=== PATIENT | male | born 1965 | race Caucasian/White ===

== ENCOUNTER 2017-04-27 19:24 | Emergency (ER) | payer OTHER ==
[2017-04-27 20:44] VITALS: BP 145/81
--- NOTE | 2017-05-04 14:33 | UC ---
Complaint Male HPI - HPI Summary HPI Summary: Patient presents with general fatigue, malaise, abdominal pain, dysuria. His symptoms came on rather suddenly and progressed through the course of today. - History of Current Complaint Hx Obtained From: Patient Onset/Duration: Sudden Onset, Lasting Hours Timing: Constant Severity Initially: Mild Severity Currently: Moderate Pain Intensity: 5 Pain Scale Used: Adult Non Verbal Location: Suprapubic Aggravating Factor(s): Voiding Associated Signs And Symptoms: Positive: Negative - Risk Factors Testicular Torsion: Negative <La León - Last Filed: 05/04/17 20:23> <Mary Cervantes - Last Filed: 05/05/17 08:53> - History of Current Complaint Chief Complaint: UCGU Stated Complaint: UTI Time Seen by Provider: 04/27/17 20:26 - Allergies/Home Medications Allergies/Adverse Reactions: Allergies Allergy/AdvReac Type Severity Reaction Status Date / Time Tetanus Toxoids Allergy Intermediate Swelling Verified 04/27/17 21:06 Penicillins Allergy Unknown Unknown Verified 04/27/17 21:06 Reaction Details Vancomycin AdvReac Unknown Tinnitus Verified 04/27/17 21:06 horse serum Allergy Intermediate Swelling Uncoded 04/27/17 21:06 PMH/Surg Hx/FS Hx/Imm Hx Previously Healthy: Yes - Surgical History Surgical History: None - Family History Known Family History: Positive: None - Social History Occupation: Employed Full-time Lives: Alone Alcohol Use: Occasionally Substance Use Type: None Smoking Status (MU): Never Smoked Tobacco - Immunization History Most Recent Influenza Vaccination: 2012 Most Recent Tetanus Shot: tetnus allergy Most Recent Pneumonia Vaccination: never <[place] Le[place] - Last Filed: 05/04/17 20:23> Review of Systems Constitutional: Fever, Fatigue Eyes: Negative ENT: Negative Respiratory: Negative Cardiovascular: Negative Gastrointestinal: Abdominal Pain Genitourinary: Dysuria Motor: Negative Neurovascular: Negative Musculoskeletal: Negative All Other Systems Reviewed And Are Negative: Yes <[place] - Last Filed: 05/04/17 20:23> Physical Exam Triage Information Reviewed: Yes Appearance: Ill-Appearing Vital Signs: Initial Vital Signs Temp 101.9 F 04/27/17 19:43 Pulse 99 04/27/17 19:43 Resp 18 04/27/17 19:43 BP 195/85 04/27/17 19:43 Pulse Ox 99 04/27/17 19:43 Vital Signs Reviewed: Yes Eye Exam: Normal ENT Exam: Normal Neck exam: Normal Neck: Positive: 1 Respiratory: Positive: Lungs clear, Normal breath sounds, No respiratory distress Cardiovascular Exam: Normal Abdomen Description: Positive: Guarding Musculoskeletal Exam: Normal Skin Exam: Normal <[place] León - Last Filed: 05/04/17 20:23> Vital Signs: Initial Vital Signs Temp 101.9 F 04/27/17 19:43 Pulse 99 04/27/17 19:43 Resp 18 04/27/17 19:43 BP 195/85 04/27/17 19:43 Pulse Ox 99 04/27/17 19:43 <Mary Cervantes - Last Filed: 05/05/17 08:53> Complaint Male Course/Dx - Course Course Of Treatment: Patient was referred to the ER for emergent evaluation of abdominal pain. UA was positive for infection. Patient was treated with ABX and told to go to ER if his symtpoms worsened. He verbalized understanding. - Differential Dx/Diagnosis Differential Diagnosis/HQI/PQRI: Urinary Tract Infection Provider Diagnoses: uti <[place] León - Last Filed: 05/04/17 20:23> Discharge <[place] - Last Filed: 05/04/17 20:23> <Mary Cervantes - Last Filed: 05/05/17 08:53> - Discharge Plan Condition: Stable Disposition: HOME Patient Education Materials: Urinary Tract Infection in Men (ED) Referrals: Bassam Zamora MD [Primary Care Provider] - Additional Instructions: Patient was transferred to the ER. Attestation Statement Provider Attestation: I did not encounter this patient directly and did not participate in his care. I was available for consultation in the premises. <Mary Cervantes - Last Filed: 05/05/17 08:53>
== END 2017-04-27 20:45 | disposition short-term general hospital (02) ==
LOC: UCEAST 19:24
DX: N39.0 Urinary tract infection, site not specified (principal); R53.83 Other fatigue; Z88.1 Allergy status to other antibiotic agents; Z88.0 Allergy status to penicillin; Z88.7 Allergy status to serum and vaccine
CPT/HCPCS: 99213; G0463

== ENCOUNTER 2017-04-27 20:59 | Inpatient (IN) | payer OTHER ==
[2017-04-27] MEDS ORDERED: NS 0.9% 1000 ML* 1,000 ML IV SCH (21:30)
[2017-04-27] MEDS ORDERED: NS 0.9% 1000 ML* 1,000 ML IV ONE (21:34)
[2017-04-27] MEDS ORDERED: NS 0.9% 1000 ML*IV.FLUID IV ONE (22:06)
[2017-04-27] MEDS ORDERED: Ciprofloxacin 400MG IVPREMIX(* 400 MG/200 ML BAG IVPB ONE (22:06)
[2017-04-27 22:10] LABS: Hematocrit 42 % (42-52); Hemoglobin 14.4 g/dl (14.0-18.0); Mean Corpuscular HGB Conc 34 g/dl (31-36); Mean Corpuscular Hemoglobin 30 pg (27-31); Mean Corpuscular Volume 87 fL (80-94); Mean Platelet Volume 7 um3 (7.4-10.4); Red Blood Count 4.81 10^6/ul (4.0-5.4); Red Cell Distribution Width 14 % (10.5-15); White Blood Count 12.7 10^3/ul (3.5-10.8)
[2017-04-27] MEDS ORDERED: Ibuprofen TAB* 600 MG PO ONE (22:22)
[2017-04-27 22:23] LABS: Albumin 4.1 g/dL (3.2-5.2); BUN/Creatinine Ratio 16.8 (8-20); EGFR African American 99.4 (>60); EGFR Non-African American 77.3 (>60); Globulin 2.9 g/dL (2-4); Potassium 4.3 mmol/L (3.5-5.0); Total Bilirubin 0.7 mg/dL (0.2-1.0)
[2017-04-27 22:38] LABS: Urine Bacteria Absent (Absent); Urine Bilirubin Negative (Negative); Urine Glucose Negative (Negative); Urine Nitrite Negative (Negative)
[2017-04-28] MEDS ORDERED: CMCS: Melatonin (NF) 3 MG TAB PO PRN
[2017-04-28] MEDS ORDERED: oxyCODONE TAB* 5 MG TAB PO PRN (00:01)
[2017-04-28] MEDS ORDERED: Ondansetron INJ* 2 MG/ML VIAL IV PRN (00:01)
--- NOTE | 2017-04-28 00:40 | HP ---
H&P (Free Text) History and Physical: PCP: Maury Zamora MD Date/Time: 04/27/2017 2350 CC: abdominal pain, dys- & hematuria HPI: Mr Espinosa is a 51YO male HX HTN who presents with onset of fever up to 101F, lower abdominal pain, and dysuria which progressed to include hematuria on Sunday. He went to [facility] where he became light-headed and syncopized briefly prompting EMS transfer to [facility]. He denies prodromal chest pain, SOB, palpations, or other symptoms. It occurred in setting of paroxysm of abdominal pain. He has had chills & sweats, denies flank/back pain and HX urolithiasis. Upon presentation to [facility], he is febrile to 38.7C, tachypneic to 23, has WBCs 12.7k, & has a HR in the 90s making him positive for sepsis 2nd UA supportive of infection. CXR is negative. Will check CT abd/pel WO to r/o obstructive uropathy & if negative will admit for IVFs & IV ABX. If positive, he will need transfer to facility capable of urgent nephrostomy vs cystoscopy with stenting. PMedHx HTN asthma (as a child) HX pneumonia Ambulatory Orders Ibuprofen [Advil] 200 mg PO Q6H PRN 03/09/13 Valsartan/HCTZ 320/12.5(NF) [Diovan Hct 320/12.5(NF)] 1 tab PO DAILY 03/09/13 Aspirin Low Dose CHEW TAB* [Aspirin Low Dose TAB*] 81 mg PO GOEL 03/22/17 Allergies Tetanus Toxoids Allergy (Intermediate, Verified 04/27/17 21:06) Swelling Penicillins Allergy (Unknown, Verified 04/27/17 21:06) Unknown Reaction Details Vancomycin Adverse Reaction (Unknown, Verified 04/27/17 21:06) Tinnitus PER MD NOTES horse serum Allergy (Intermediate, Uncoded 04/27/17 21:06) Swelling PSurgHx denies SocHx: no tobacco, rare alcohol, no recreational drugs; lives with his ; works IT for [employer]; full code status FamHx: Mother: alive w/ HTN; Father: alive w/ HTN; Sister: alive w/ HLD; otherwise positive for DM & COPD ROS: as above, otherwise reviewed and all were negative vitals: Vital Signs Temp 38.7 C 04/27/17 21:04 Pulse 96 04/28/17 00:01 Resp 23 04/27/17 21:30 BP 132/75 04/28/17 00:01 Pulse Ox 93 04/28/17 00:01 Intake & Output 04/27/17 04/27/17 04/28/17 11:59 23:59 11:59 Weight 117.027 kg Constitutional: NAD, normally developed, obese white male HEENM: atraumatic; sclera/conjunctiva: anicteric/clear; hearing: clinically intact; oropharynx: clear, mucosa moist Neck: soft tissue: non-tender, no nuchal rigidity; thyroid: normal Pulmonary: clear to auscultation bilaterally, good aeration, no accessory muscle use CV: RR/RR, normal S1S2, no carotid bruit, no jugular venous distention, 2+ B DP/ PT, no edema Abdominal: soft, non-distended, non-tender, no rebound/guarding/rigidity, normoactive bowel sounds, no hepatosplenomegaly or masses, no costovertebral angle tenderness Musculoskeletal: general: grossly intact, no palpable tenderness Integumental: normal appearance and texture of exposed skin Psychiatric orientation: AA&O to PPS affect: fatigued mood: cooperative eye contact: fair content: reliable responses: timely insight: fair to good Testing: Lab Results 04/27/17 04/27/17 04/27/17 Range/Units 21:54 21:54 21:54 WBC 12.7 H (3.5-10.8) 10^3/ul RBC 4.81 (4.0-5.4) 10^6/ul Hgb 14.4 (14.0-18.0) g/dl Hct 42 (42-52) % MCV 87 (80-94) fL MCH 30 (27-31) pg MCHC 34 (31-36) g/dl RDW 14 (10.5-15) % Plt Count 175 (150-450) 10^3/ul MPV 7 L (7.4-10.4) um3 Neut % (Auto) 87.1 H (38-83) % Lymph % (Auto) 5.3 L (25-47) % [place] % (Auto) 6.7 (1-9) % Eos % (Auto) 0.3 (0-6) % Baso % (Auto) 0.6 (0-2) % Absolute Neuts (auto) 11.1 H (1.5-7.7) 10^3/ul Absolute Lymphs (auto) 0.7 L (1.0-4.8) 10^3/ul Absolute Monos (auto) 0.9 H (0-0.8) 10^3/ul Absolute Eos (auto) 0 (0-0.6) 10^3/ul Absolute Basos (auto) 0.1 (0-0.2) 10^3/ul Absolute Nucleated RBC 0 10^3/ul Nucleated RBC % 0 INR (Anticoag Therapy) (0.89-1.11) APTT (26.0-36.3) seconds Sodium 133 (133-145) mmol/L Potassium 4.3 (3.5-5.0) mmol/L Chloride 99 L (101-111) mmol/L Carbon Dioxide 29 (22-32) mmol/L Anion Gap 5 (2-11) mmol/L BUN 17 (6-24) mg/dL Creatinine 1.01 (0.67-1.17) mg/dL Est GFR ( Amer) 99.4 (>60) Est GFR (Non-Af Amer) 77.3 (>60) BUN/Creatinine Ratio 16.8 (8-20) Glucose 139 H (70-100) mg/dL Lactic Acid (0.5-2.0) mmol/L Calcium 9.0 (8.6-10.3) mg/dL Total Bilirubin 0.70 (0.2-1.0) mg/dL AST 18 (13-39) U/L ALT 21 (7-52) U/L Alkaline Phosphatase 57 (34-104) U/L Troponin I (<0.04) ng/mL Total Protein 7.0 (6.4-8.9) g/dL Albumin 4.1 (3.2-5.2) g/dL Globulin 2.9 (2-4) g/dL Albumin/Globulin Ratio 1.4 (1-3) Urine Color [place] Urine Appearance Cloudy Urine pH 8.0 (5-9) Ur Specific [place] 1.023 (1.010-1.030) Urine Protein 2+(100 mg/dl) H (Negative) Urine Ketones Negative (Negative) Urine Blood 3+ H (Negative) Urine Nitrate Negative (Negative) Urine Bilirubin Negative (Negative) Urine Urobilinogen Negative (Negative) Ur Leukocyte Esterase 3+ H (Negative) Urine WBC (Auto) 3+(>20/hpf) H (Absent) Urine RBC (Auto) 3+(>10/hpf) H (Absent) Amorphous Crystals Present H (Absent) Urine Bacteria Absent (Absent) Urine Glucose Negative (Negative) 04/27/17 04/27/17 04/27/17 Range/Units 21:54 21:54 22:21 WBC (3.5-10.8) 10^3/ul RBC (4.0-5.4) 10^6/ul Hgb (14.0-18.0) g/dl Hct (42-52) % MCV (80-94) fL MCH (27-31) pg MCHC (31-36) g/dl RDW (10.5-15) % Plt Count (150-450) 10^3/ul MPV (7.4-10.4) um3 Neut % (Auto) (38-83) % Lymph % (Auto) (25-47) % [place] % (Auto) (1-9) % Eos % (Auto) (0-6) % Baso % (Auto) (0-2) % Absolute Neuts (auto) (1.5-7.7) 10^3/ul Absolute Lymphs (auto) (1.0-4.8) 10^3/ul Absolute Monos (auto) (0-0.8) 10^3/ul Absolute Eos (auto) (0-0.6) 10^3/ul Absolute Basos (auto) (0-0.2) 10^3/ul Absolute Nucleated RBC 10^3/ul Nucleated RBC % INR (Anticoag Therapy) 1.05 (0.89-1.11) APTT 26.6 (26.0-36.3) seconds Sodium (133-145) mmol/L Potassium (3.5-5.0) mmol/L Chloride (101-111) mmol/L Carbon Dioxide (22-32) mmol/L Anion Gap (2-11) mmol/L BUN (6-24) mg/dL Creatinine (0.67-1.17) mg/dL Est GFR ( Amer) (>60) Est GFR (Non-Af Amer) (>60) BUN/Creatinine Ratio (8-20) Glucose (70-100) mg/dL Lactic Acid 1.7 (0.5-2.0) mmol/L Calcium (8.6-10.3) mg/dL Total Bilirubin (0.2-1.0) mg/dL AST (13-39) U/L ALT (7-52) U/L Alkaline Phosphatase (34-104) U/L Troponin I 0.00 (<0.04) ng/mL Total Protein (6.4-8.9) g/dL Albumin (3.2-5.2) g/dL Globulin (2-4) g/dL Albumin/Globulin Ratio (1-3) Urine Color Urine Appearance Urine pH (5-9) Ur Specific [place] (1.010-1.030) Urine Protein (Negative) Urine Ketones (Negative) Urine Blood (Negative) Urine Nitrate (Negative) Urine Bilirubin (Negative) Urine Urobilinogen (Negative) Ur Leukocyte Esterase (Negative) Urine WBC (Auto) (Absent) Urine RBC (Auto) (Absent) Amorphous Crystals (Absent) Urine Bacteria (Absent) Urine Glucose (Negative) ECG, personally reviewed: sinus RBBB rate 86, no ischemia CXR, personally reviewed: no acute process Impression: 51M presenting with sespsis 2nd UTI & syncope, suspect vaso-vagal DIAGNOSIS & PLAN Primary sepsis 2nd UTI : IV ciprofloxacin : IVFs : blood & urine CXs : pain control : supportive care Secondary HTN : review meds once reconciled Admission Rational: inpatient for sepsis requiring IVFs & ABX; inappropriate for outpatient setting DVTp: SCDs, no anticoagulation 2nd dyllan hematuria Code Status: full HCP:
[2017-04-28] MEDS: NS 0.9% 1000 ML* 1,000 ML IV SCH ×2 (03:48→21:29)
[2017-04-28] MEDS: Phenazopyridine TAB* 100 MG PO SCH ×3 (03:52→17:37)
[2017-04-28] MEDS: Omeprazole CAP* 20 MG PO SCH (06:15)
--- NOTE | 2017-04-28 07:42 | RAD ---
HISTORY: Fever COMPARISONS: March 12, 2013 VIEWS: 1: frontal portable view of the chest at 10:32 PM FINDINGS: LINES AND TUBES: None. CARDIOMEDIASTINAL SILHOUETTE: The cardiomediastinal silhouette is normal for portable technique. PLEURA: The costophrenic angles are sharp. No pleural abnormalities are noted. LUNG PARENCHYMA: The lungs are clear. ABDOMEN: The upper abdomen is clear. There is no subphrenic gas. BONES AND SOFT TISSUES: No bone or soft tissue abnormalities are noted. IMPRESSION: NO ACTIVE CARDIOPULMONARY DISEASE.
--- NOTE | 2017-04-28 08:10 | RAD ---
CLINICAL HISTORY: Sepsis, UTI COMPARISON: None TECHNIQUE: Multiple contiguous axial CT scans were obtained of the abdomen and pelvis, without intravenous contrast enhancement. Coronal and sagittal multiplanar reformations are submitted for review. Oral contrast was not administered. FINDINGS: The study is limited by the lack of intravenous contrast. This limits evaluation of the solid organs and vasculature. LUNG BASES: The lung bases are clear. LIVER: The liver is normal in shape, size, contour, and attenuation. BILE DUCTS: There is no intrahepatic or extrahepatic biliary dilatation. GALLBLADDER: The gallbladder is collapsed and is not well evaluated. PANCREAS: The pancreas is normal, without mass or ductal dilatation. SPLEEN: Normal in size and appearance. UPPER GI TRACT: Evaluation of the gastrointestinal tract is limited by incomplete gastric distention. The upper GI tract is unremarkable. SMALL BOWEL AND MESENTERY: The small bowel is normal in contour, course, and caliber. There is no obstruction or dilatation. COLON: The colon is normal in contour, course, caliber. There is no pericolonic inflammatory change. There is a tubular, vermiform, hollow viscus that is blind ending, and originates from the cecum, consistent with a normal appendix. There is no periappendiceal inflammatory change. This is best seen on axial images 51 through 59 ADRENALS: There is a right adrenal nodule measuring 9 Hounsfield units most consistent with an adrenal adenoma. KIDNEYS: The kidneys are normal in shape, size, contour, and axis. There is no hydronephrosis or nephrolithiasis. BLADDER: The bladder is smooth in contour. There is mild stranding of the perivesicular fat PELVIC ORGANS: Enlarged prostate. There is mild stranding of the fat along the prostate gland and seminal vesicles. AORTA: The aorta is normal. IVC: Unremarkable LYMPH NODES: There is no lymphadenopathy by size criteria. ABDOMINAL WALL: There is a small fat-containing umbilical hernia. BONES AND SOFT TISSUES: Degenerative changes are noted OTHER: None IMPRESSION: 1. NO HYDRONEPHROSIS OR NEPHROLITHIASIS. 2. MILD INFLAMMATORY CHANGE SURROUNDING THE BLADDER, PROSTATE GLAND AND SEMINAL VESICLES. THE DIFFERENTIAL INCLUDES PROSTATITIS/CYSTITIS. 3. RIGHT ADRENAL ADENOMA.
[2017-04-28 08:27] LABS: Hematocrit 37 % (42-52); Hemoglobin 12.5 g/dl (14.0-18.0); Mean Corpuscular HGB Conc 34 g/dl (31-36); Mean Corpuscular Hemoglobin 29 pg (27-31); Mean Corpuscular Volume 86 fL (80-94); Mean Platelet Volume 7 um3 (7.4-10.4); Red Blood Count 4.33 10^6/ul (4.0-5.4); Red Cell Distribution Width 14 % (10.5-15); White Blood Count 15.4 10^3/ul (3.5-10.8)
[2017-04-28 08:28] LABS: Comments Flag Yes
[2017-04-28 08:42] LABS: EGFR Non-African American 83.9 (>60)
[2017-04-28] MEDS: Docusate CAP* 100 MG PO SCH ×2 (09:35→20:50)
[2017-04-28] MEDS: Acetaminophen TAB* 325 MG PO PRN ×2 (10:45→18:47)
[2017-04-28] MEDS: Ciprofloxacin IV(*) 400 MG in D5W 250 ML BAG* 160 ML IVPB SCH (11:56)
--- NOTE | 2017-04-28 14:57 | PN ---
Subjective Date of Service: 04/28/17 Interval History: Patient describes ongoing pain in his scrotum. Patient states the pain is very intense and worse with movement or pressure. Patient describes the pain as a deep pain like a bruise. Patient denies any trauma and states that this came on rather suddenly when he was at rest. Patient denies any previous episodes like this. Patient denies any history of STD, signs of BPH such as stopping or starting urine stream, dribbling, or retention. Patient denies any insertive anal intercourse or recent instrumentation of the urinary tract. Patient had lower abdominal pain yesterday which was very intense but this has resolved today. Patient is making copious red urine but has been given pyridium. Patient had only a small amount of dyllan blood in his urine previously and has never had an episode like this before. Family History: Unchanged from Admission Social History: Unchanged from Admission Past Medical History: Unchanged from Admission Objective Active Medications: Acetaminophen (Tylenol Tab*) 650 mg PO Q6H PRN PRN Reason: FEVER/PAIN Last Admin: 04/28/17 10:45 Dose: 650 mg Docusate Sodium (Colace Cap*) 200 mg PO BID [facility] Last Admin: 04/28/17 09:35 Dose: 200 mg Ciprofloxacin 400 mg/ Dextrose 200 mls @ 200 mls/hr IVPB Q12H [facility] Last Admin: 04/28/17 11:56 Dose: 200 mls/hr Sodium Chloride (Ns 0.9% 1000 Ml*) 1,000 mls @ 125 mls/hr IV PER RATE [facility] Last Admin: 04/28/17 03:48 Dose: 125 mls/hr Melatonin (Melatonin (Nf)) 3 mg PO BEDTIME PRN; Protocol PRN Reason: Sleep Omeprazole (Prilosec Cap*) 20 mg PO DAILY@0600 [facility] Last Admin: 04/28/17 06:15 Dose: 20 mg Ondansetron HCl (Zofran Inj*) 4 mg IV Q6H PRN PRN Reason: NAUSEA Oxycodone HCl (Roxycodone Tab*) 5 mg PO Q4H PRN PRN Reason: PAIN Phenazopyridine HCl (Pyridium Tab*) 200 mg PO Q8H [facility] Last Admin: 04/28/17 09:34 Dose: 200 mg Vital Signs 04/28/17 04/28/17 04/28/17 00:00 00:01 00:30 Temperature Pulse Rate 95 96 96 Respiratory Rate Blood Pressure 132/75 135/74 (mmHg) O2 Sat by Pulse 94 93 93 Oximetry 04/28/17 04/28/17 04/28/17 00:50 00:59 01:00 Temperature Pulse Rate 93 Respiratory 30 Rate Blood Pressure 143/76 109/71 (mmHg) O2 Sat by Pulse 92 Oximetry 04/28/17 04/28/17 04/28/17 01:02 01:28 01:30 Temperature 99.1 F Pulse Rate 90 78 86 Respiratory 21 20 23 Rate Blood Pressure 137/79 131/77 (mmHg) O2 Sat by Pulse 91 98 94 Oximetry 04/28/17 04/28/17 04/28/17 02:00 02:30 04:25 Temperature Pulse Rate 82 81 68 Respiratory 23 24 Rate Blood Pressure 126/74 124/72 113/61 (mmHg) O2 Sat by Pulse 93 92 Oximetry 04/28/17 04/28/17 04/28/17 04:26 07:28 08:00 Temperature 98.4 F Pulse Rate 72 69 Respiratory 18 Rate Blood Pressure 131/70 102/50 (mmHg) O2 Sat by Pulse 96 Oximetry 04/28/17 04/28/17 04/28/17 09:45 11:00 11:19 Temperature 99.1 F 99.9 F Pulse Rate 79 74 73 Respiratory 16 Rate Blood Pressure 112/65 (mmHg) O2 Sat by Pulse 97 94 96 Oximetry Oxygen Devices in Use Now: None Appearance: Patient is a 51yo who appears stated age and is sitting in the bed in [facility]. Eyes: No Scleral Icterus, PERRLA Ears/Nose/Mouth/Throat: NL Teeth, Lips, Gums, Clear Oropharnyx, Mucous Membranes Moist Neck: NL Appearance and Movements; NL JVP, Trachea Midline Respiratory: Symmetrical Chest Expansion and Respiratory Effort, Clear to Auscultation Cardiovascular: NL Sounds; No Murmurs; No JVD, RRR, No Edema Abdominal: NL Sounds; No Tenderness; No Distention, No Hepatosplenomegaly, - - Right testicle is significantly enlarged, exquisitely tender and almost twice the size of the left. Lymphatic: No Cervical Adenopathy, No Axillary Adenopathy, No Inguinal Adenopathy Extremities: No Edema, No Clubbing, Cyanosis Skin: No Rash or Ulcers, No Nodules or Sclerosis Neurological: Alert and Oriented x 3, NL Muscle Strength and Tone, - - CN II- XII intact. Result Diagrams: 04/28/17 08:16 04/28/17 08:16 Assess/Plan/Problems-Billing Assessment: Patient is a 51yo with a PMH significant for Hypertension, childhood asthma, and pneumonia who presents with symptoms of urinary tract infection and dyllan red blood in urine. Patient has improved since yesterday but has continued pain and inflammation in right testicle. - Patient Problems (1) Sepsis Current Visit: Yes Status: Acute Comment: Secondary to UTI. Patient met criteria for sepsis by SIRS which is now resolved after fluids and IV antibiotics. Patient scores 0 points on SOFA (2) Urinary tract infection Current Visit: Yes Status: Acute Comment: Urine culture grew 75-100K E. Coli, sensativities pending. Patient has no predisposing factors such as BPH or insertive anal intercourse. No recent instrumentation of the urinary tract. Continue ciprofloxacin. (3) Epididymo-orchitis Current Visit: Yes Status: Acute Code(s): N45.3 - EPIDIDYMO-ORCHITIS SNOMED Code(s): 946105092 Comment: Patient has significant increased swelling and erythema of the right testicle with severe pain. Likely infectious epididymo-orchitis in the setting of E. Coli UTI. Being treated with Ciprofloxacin. (4) Hypertension Current Visit: Yes Status: Acute Code(s): I10 - ESSENTIAL (PRIMARY) HYPERTENSION SNOMED Code(s): 07833131 Comment: Currently normotensive, continue to hold diovan. (5) Full code status Current Visit: Yes Status: Acute Code(s): Z78.9 - OTHER SPECIFIED HEALTH STATUS SNOMED Code(s): 539342693 (6) DVT prophylaxis Current Visit: Yes Status: Acute Code(s): EWP8748 - SNOMED Code(s): 141170680 Comment: SCDs and ambulation due to previous dyllan blood in urine. Status and Disposition: Patient is admitted inpatient. Estimated LOS 1-2 more days.
[2017-04-29] MEDS: Phenazopyridine TAB* 100 MG PO SCH ×2 (00:28→08:49)
[2017-04-29] MEDS: Ciprofloxacin IV(*) 400 MG in D5W 250 ML BAG* 160 ML IVPB SCH (00:28)
[2017-04-29] MEDS: Omeprazole CAP* 20 MG PO SCH (05:39)
[2017-04-29 06:53] LABS: Hematocrit 36 % (42-52); Hemoglobin 12.4 g/dl (14.0-18.0); Mean Corpuscular HGB Conc 34 g/dl (31-36); Mean Corpuscular Hemoglobin 30 pg (27-31); Mean Corpuscular Volume 86 fL (80-94); Mean Platelet Volume 7 um3 (7.4-10.4); Red Cell Distribution Width 14 % (10.5-15)
[2017-04-29] MEDS: NS 0.9% 1000 ML* 1,000 ML IV SCH (06:58)
[2017-04-29 07:07] LABS: Albumin 3.2 g/dL (3.2-5.2); BUN/Creatinine Ratio 11.2 (8-20); Calcium 8.2 mg/dL (8.6-10.3); EGFR Non-African American 89.4 (>60); Globulin 2.5 g/dL (2-4); Potassium 3.6 mmol/L (3.5-5.0); Total Bilirubin 0.8 mg/dL (0.2-1.0); Total Protein 5.7 g/dL (6.4-8.9)
[2017-04-29] MEDS: Docusate CAP* 100 MG PO SCH (08:49)
[2017-04-29 12:49] VITALS: BP 140/73
--- NOTE | 2017-04-30 05:17 | DS ---
CC: Dr. Bassam Zamora * DISCHARGE SUMMARY: DATE OF ADMISSION: 04/27/17 DATE OF DISCHARGE: 04/29/17 PRIMARY CARE PHYSICIAN: Dr. Bassam Zamora. ATTENDING PHYSICIAN WHILE IN THE HOSPITAL: Dr. Darryn Mcclellan * (DICTATED BY MIRZA CULVER) PRIMARY DISCHARGE DIAGNOSES: 1. Urinary tract infection. 2. Epididymal orchitis. SECONDARY DISCHARGE DIAGNOSIS: Hypertension. STUDIES DONE WHILE IN THE HOSPITAL: 1. Electrocardiogram 04/27/17 shows normal sinus rhythm, right bundle-branch block, uninterpretable ST segments due to right bundle- branch block, left axis deviation. No other abnormalities. 2. Chest x-ray from 04/27/17 read as no active cardiopulmonary disease. 3. Abdomen and pelvis CT from 04/28/17 read as no hydronephrosis or nephrolithiasis. Mild inflammatory changes surrounding the bladder, prostate gland, and seminal vesicles. Differential includes prostatitis/cystitis and right adrenal adenoma. MEDICATIONS AT DISCHARGE: 1. Aspirin 81 mg p.o. daily. 2. Tylenol 650 mg p.o. q.6 hours as needed. 3. Ciprofloxacin 500 mg p.o. q.12 hours x25. 4. Pyridium 200 mg p.o. q.8 hours. New medications at discharge: 1. Tylenol. 2. Ciprofloxacin. 3. Pyridium. Medication discontinued on discharge: 1. Diovan 320/25 one tab p.o. daily. HOSPITAL COURSE: This is a brief summary of the patient's presentation. For more details, please see the history and physical from Dr. Balwinder Pino on 04/28/17. In brief, the patient is a 51-year-old male with the past medical history significant as above who had lower abdominal pain, dysuria, hematuria, and scrotum pain. He went to [facility] and became lightheaded in the paroxysm of intense abdominal pain. The patient synopsized briefly and was sent to the emergency department via ambulance. The patient was febrile, tachypneic, leukocytosis meeting sepsis criteria with a UA indicating infection. CT of the abdomen and pelvis was read as above showing no obstructive uropathy or nephro-lithiasis. The patient was admitted for pain control with fluids and was started on ciprofloxacin 400 mg IV q.12 hours. The patient improved overnight from 04/27/17 to 04/28/17. The patient's fever decreased with Tylenol administration. The patient was no longer tachycardic. The patient's blood pressure was normal, it was normotensive to slightly hypertensive to his cognition. Orthostatic vital signs showed no orthostasis. The patient had dyllan hematuria prior to presentation with a small amount only in each of his urination. The patient's hemoglobin dropped from 14.4 on admission to 12.5 on 06/28/16 and stayed approximately stable at 12.4 on 04/29/17, probably representing dilutional change as patient received 6.5 L of IV fluids while in the hospital. The patient any predisposing factors for urinary tract infection such as concern of anal intercourse, instrumentation of the urinary tract, symptoms of BPH, or any other abnormalities of the urinary tract. The patient has never seen a urologist. The patient improved greatly from 04/28/17 to 04/29 with decreased pain in his scrotum. Of note, on physical exam on 04/28/17, the patient's right testicle was swollen to approximately twice the size of his left testicle. This was not noted elsewhere by the emergency department providers or in the history and physical. The patient states it has been going on for a significant period of time before his presentation. The patient felt ready to be discharged home on 04/29/17 on oral ciprofloxacin. PHYSICAL EXAMINATION ON THE DAY OF DISCHARGE: General: The patient is a 51- year- old male who appears stated age and sitting comfortably in bed, in no acute distress. Vital Signs: At discharge, temperature 98.6, pulse rate 75, respiratory rate 24, oxygen saturation 92% on room air, and blood pressure 140/ 73. HEENT: Head normocephalic and atraumatic. Sclerae anicteric. No conjunctival injection. Nasal mucosa moist and intact. Pharynx: Nonerythematous , mucous membranes are moist. Neck: Supple, nontender. No lymphadenopathy. No carotid bruits auscultated. Cardiac: Regular rate and rhythm. No clicks, murmurs, gallops, or rubs. Pulses 2+ in the bilateral dorsalis pedis, posterior tibialis, and radial areas. No edema. Respiratory: Clear to auscultation bilaterally. No wheezes, rales, or rhonchi. Good air exchange bilaterally. Abdomen: Soft, nontender, and nondistended. Bowel sounds present and normoactive in all 4 quadrants. No hepatosplenomegaly. No abdominal bruits auscultated. Genitourinary: No suprapubic tenderness or CVA tenderness. Penis is without rash. Scrotum, the patient's right testicle is approximately twice the size of his left, erythematous and exquisitely tender to palpation. Prehn's sign uninterpretable due to pain. No inguinal lymphadenopathy. Skin: No rash. Neuro: Cranial nerves II through XII grossly intact. Normal gait. Alert and oriented x3. Psychiatric: Pleasant and cooperative. LABORATORY DATA: On the day of discharge: White blood cell count 10.0, hemoglobin 12.4, and platelet count 153. Sodium 137, potassium 3.6, chloride 107, BUN 10, creatinine 0.89, calcium 8.2, magnesium 2.0. Total bilirubin 0.8, AST 12, ALT 14, alkaline phosphatase 54, total protein 5.7, albumin 3.2. Other alternative note, urinalysis shows 2+ protein, 3+ blood, 3+ leukocyte esterase, 3+ white blood cells, 3+ red blood cells, and amorphus crystals. DISCHARGE PLAN: The patient will be discharged home on oral ciprofloxacin of 100 mg p.o. q.12 hours for 13 days to complete a 14-day course of ciprofloxacin. The patient will also have Pyridium for pain control as well as Tylenol for fever and pain. The patient had his Diovan discontinued due to normotensive blood pressure readings. The patient was instructed to take his blood pressure twice a day and resume Diovan if it at any point exceeded 160 and otherwise to defer to his primary care doctor's discretion for resuming his Diovan. The patient is okay to return to work. The patient should follow up with a urologist for repeat urinary tract infections. The patient should return to the hospital for recurrence in symptoms as well as other alarming symptoms such as chest pain or shortness of breath. The patient will be informed if his STD testing that was performed while in the hospital comes back positive. ACTIVITY: As tolerated. DIET: Heart-healthy diet, no caffeine. TIME SPENT: Approximately 40 minutes were spent on his discharge, 20 of which was spent [id number] with the patient obtaining history and physical and discussing the treatment plan. MIRZA CULVER [id number]/[facility] #: [id number] GOLDY
== END 2017-04-29 13:50 | disposition home or self-care (01) | DRG 689 ==
LOC: ED 20:59 → MED 23:58
PROVIDERS: ADMIT Hospitalist; ATTEND Internal Medicine
DX: N39.0 Urinary tract infection, site not specified (principal); A41.9 Sepsis, unspecified organism; I10 Essential (primary) hypertension; B96.20 Unspecified Escherichia coli [E. coli] as the cause of diseases classified elsewhere; R31.9 Hematuria, unspecified; N45.3 Epididymo-orchitis; I45.10 Unspecified right bundle-branch block; Z79.1 Long term (current) use of non-steroidal anti-inflammatories (NSAID); Z79.82 Long term (current) use of aspirin; Z79.899 Other long term (current) drug therapy; Z88.1 Allergy status to other antibiotic agents; Z88.0 Allergy status to penicillin; Z88.7 Allergy status to serum and vaccine; Z91.048 Other nonmedicinal substance allergy status; Z82.49 Family history of ischemic heart disease and other diseases of the circulatory system; Z83.3 Family history of diabetes mellitus; Z82.5 Family history of asthma and other chronic lower respiratory diseases
CPT/HCPCS: 36415; 71010; 74176; 80048; 80053; 81003; 81015; 83605; 83735; 84484; 85025; 85610; 85730; 87040; 87077; 87086; 87150; 87186; 87205; 87491; 87591; 93005; A9270-GY; J0744

== ENCOUNTER 2017-07-17 11:11 | Emergency (ER) | payer OTHER ==
--- OUTSIDE RECORDS SUMMARY | 2017-07-17 11:18 | XMS REPORT ---
:1965 External Reference #:[id number] Author Organization [facility] Address [address] [address] Phone [phone] Care Team Providers Name Role Phone Bassam Zamora MD Primary Care Physician Unavailable Payers Type Date Identification Numbers Payment Provider Subscriber Commercial Policy Number: [id number] [employer] Joao Espinosa PayID: [id number] [id number] [place] [address] Problems Description No Information Social History Type Date Description Comments Smoking Patient has never smoked Allergies, Adverse Reactions, Alerts Date Description Reaction Status Severity Comments 03/29/2017 Penicillin active 03/29/2017 Horse Serum active Medications Medication Date Status Form Strength Qnty SIG Indications Ordering Provider Valsartan-Hydr Active Tablets 320-12.5mg 1 by Unknown ochlorothiazid 000 mouth e every day Aspirin Adult Active Tablets DR 81mg 1 by Unknown Low Dose 000 mouth every week Vital Signs Date Vital Result Comment 06/19/2017 Heart Rate 84 /min BP Systolic 148 mmHg BP Diastolic 92 mmHg Respiratory Rate 18 /min Body Temperature 98.3 F 04/17/2017 Heart Rate 62 /min Respiratory Rate 16 /min Body Temperature 97.5 F 04/02/2017 Height 72 inches 6'0" Weight 255.00 lb Heart Rate 78 /min BP Systolic Sitting 142 mmHg BP Diastolic Sitting 96 mmHg Respiratory Rate 16 /min Body Temperature 98.7 F BMI (Body Mass Index) 34.6 kg/m2 Results Description No Information Procedures Date CPT Code Description Status 06/19/2017 81024 Anoscopy Completed 03/22/2017 Colonoscopy Completed Encounters Type Date Location Provider CPT E/M Dx Office Visit 04/29/2017 [facility],pc MIR[place]roy[place] [address] N30.90 2:37p Hospitalists N45.3 A41.9 I10 Office Visit 04/28/2017 2:29p [facility], [place] [address] N30.90 Hospitalists A41.9 I10 [facility] [place], [address] N30.90 Assoc, Hospitalists MSuzan A41.9 I10 Office Visit 04/17/2017 10:00a [facility], [address] K64.5 [facility] Office Visit 04/02/2017 1:15p [facility], [address] K64.5 [facility] Office Visit 03/16/2013 3:34p [facility], [place]. [address] 481 Hospitalists 995.91 790.4 276.1 Office Visit 03/15/2013 3:34p [facility], [place] N[place]. [address] 481 Hospitalists 995.91 790.4 276.1 Office Visit 03/14/2013 1:33p [facility] Frankie Hale, [address] 486 Infectious Diseases M.DMike 995.91 Office Visit 03/14/2013 3:33p [facility], Darryn Garcia, [address] 481 Hospitalists N.P. 995.91 276.1 401.1 Office Visit 03/13/2013 3:33p [facility], Darryn Garcia, [address] 481 Hospitalists N.P. 995.91 276.1 401.1 Office Visit 03/13/2013 4:11p [facility] Frankie Hale, [address] 995.91 Infectious Diseases M.DMike 486 Office Visit 03/12/2013 3:32p [facility], Darryn Garcia, [address] 481 Hospitalists N.P. 995.91 276.1 401.1 Plan of Care 06/19/2017 - [facility] MDK64.8 Other hemorrhoidsFollow up:As needed
[2017-07-17] MEDS: NS 0.9% 1000 ML* 2,000 ML IV ONE (12:07)
[2017-07-17 12:22] LABS: Hematocrit 41 % (42-52); Hemoglobin 14.1 g/dl (14.0-18.0); Mean Corpuscular HGB Conc 35 g/dl (31-36); Mean Corpuscular Hemoglobin 30 pg (27-31); Mean Corpuscular Volume 86 fL (80-94); Mean Platelet Volume 7 um3 (7.4-10.4); Platelet Count 146 10^3/ul (150-450); Red Blood Count 4.71 10^6/ul (4.0-5.4); Red Cell Distribution Width 14 % (10.5-15); White Blood Count 5.7 10^3/ul (3.5-10.8)
[2017-07-17 12:26] LABS: ABS Basophils 0 10^3/ul (0-0.2); ABS Eosinophils 0.1 10^3/ul (0-0.6); ABS Lymphocytes 0.5 10^3/ul (1.0-4.8); ABS Monocytes 0.7 10^3/ul (0-0.8); ABS Neutrophils 4.4 10^3/ul (1.5-7.7); ABS Nucleated RBC 0 10^3/ul; Eosinophil % 1.5 % (0-6); Nucleated Red Blood Cells % 0.1
--- NOTE | 2017-07-17 12:43 | RAD ---
INDICATION: Upper respiratory tract infection COMPARISON: April 27, 2017 TECHNIQUE: An AP portable view obtained at 1220 hours is submitted. FINDINGS: Bones/Soft Tissues: There are no acute bony findings. Cardiomediastinal: The cardiomediastinal silhouette is normal. Lungs: There are no infiltrates. Pleura: There are no pleural effusions. Other: None IMPRESSION: NORMAL CHEST
[2017-07-17 13:58] LABS: Urine Appearance Clear; Urine Blood Negative (Negative); Urine Color Yellow; Urine Ketones Negative (Negative); Urine Protein Negative (Negative); Urine Specific Gravity 1.009 (1.010-1.030); Urine Urobilinogen Negative (Negative)
[2017-07-17] MEDS ORDERED: Oseltamivir CAP* 75 MG CAP PO ONE (15:01)
[2017-07-17 17:19] VITALS: BP 127/83
--- NOTE | 2017-07-22 14:29 | ED ---
Pillo Blevins Stephanie, scribed for Viktor Zapata MD on 07/17/17 at 1216 . Syncope/Near Syncope - HPI Summary HPI Summary: The pt is a 51 y/o M presenting to the ED with c/o syncopal event that occurred at 08:00 on 07/15/17 while having his ears cleaned out. Symptoms include lightheaded dizziness. The pt denies head trauma or pain. The pt is influenza A positive. Flu symptoms include sinusitis, nasal congestion, productive cough, sore throat, AMARAL and fever. The pt got flu shot in March. Pt denies N/V/D, CP, SOB, decreased oral intake, neck pain and confusion. Pt was sitting at time of syncope. Denies recent sick contacts. - History Of Current Complaint Chief Complaint: EDSyncope Time Seen by Provider: 07/17/17 11:51 Hx Obtained From: Patient Onset/Duration: Sudden Onset, Resolved Timing: Frequency Of Episodes - 1 Context: Witnessed Activity At Onset: At Rest Associated Head Trauma: No Aggravating Factor(s): Nothing Alleviating Factor(s): Spontaneous Resolution Associated Signs And Symptoms: Dizzy, Lightheadedness, Other - sinusitis, nasal congestion, productive cough, sore throat, AMARAL and fever. - Allergies/Home Medications Allergies/Adverse Reactions: Allergies Allergy/AdvReac Type Severity Reaction Status Date / Time MS Tetanus Toxoids Allergy Intermediate Swelling Verified 04/27/17 21:06 [Tetanus Toxoids] MS Penicillins [Penicillins] Allergy Unknown Unknown Verified 04/27/17 21:06 Reaction Details MS Vancomycin [Vancomycin] AdvReac Unknown Tinnitus Verified 04/27/17 21:06 horse serum Allergy Intermediate Swelling Uncoded 04/27/17 21:06 PMH/Surg Hx/FS Hx/Imm Hx Endocrine/Hematology History: Denies: Hx Diabetes, Hx Thyroid Disease, Hx Anemia Cardiovascular History: Reports: Hx Hypertension Denies: Hx Congestive Heart Failure, Hx Pacemaker/ICD, Other Cardiovascular Problems/Disorders Respiratory History: Reports: Hx Asthma - A CHILD, Hx Pneumonia, Other Respiratory Problems/Disorders - bronchitis in the past Denies: Hx Chronic Obstructive Pulmonary Disease (COPD) GI History: Reports: Hx Gastroesophageal Reflux Disease, Other GI Disorders - polyps in colon Denies: Hx Ulcer Sensory History: Reports: Hx Contacts or Glasses - For driving Denies: Hx Hearing Aid Opthamlomology History: Reports: Hx Contacts or Glasses - For driving - Surgical History Surgery Procedure, Year, and Place: None - Immunization History Date of Tetanus Vaccine: never Date of Influenza Vaccine: 2017 Infectious Disease History: No Infectious Disease History: Denies: Hx Clostridium Difficile, Hx Hepatitis, Hx Human Immunodeficiency Virus (HIV), Hx of Known/Suspected MRSA, Hx Shingles, Hx Tuberculosis, Hx Known/ Suspected VRE, Traveled Outside the [place] in Last 30 Days - Family History Known Family History: Positive: Hypertension - parents, Diabetes, Other - HLD Sister - Social History Occupation: Employed Full-time Lives: With Family Alcohol Use: Occasionally Substance Use Type: Reports: None Smoking Status (MU): Never Smoked Tobacco Review of Systems Positive: Fever. Negative: Chills Negative: Erythema Positive: Sore Throat, Other - sinusitis, nasal congestion Negative: Chest Pain Positive: Cough. Negative: Shortness Of Breath Negative: Abdominal Pain, Vomiting, Diarrhea, Nausea Negative: dysuria, hematuria Negative: Myalgia, Edema Negative: Rash Neurological: Other - lightheadedness, dizziness Positive: Headache All Other Systems Reviewed And Are Negative: Yes Physical Exam - Summary Physical Exam Summary: Constitutional: Well-developed, Well-nourished, Alert. (-) Distressed Skin: Warm, Dry HENT: Normocephalic; Atraumatic Eyes: Conjunctival injections Neck: Musculoskeletal ROM normal neck. (-) JVD, (-) Stridor, (-) Tracheal deviation Cardio: Rhythm regular, rate normal, Heart sounds normal; Intact distal pulses; The pedal pulses are 2+ and symmetric. Radial pulses are 2+ and symmetric. (-) Murmur Pulmonary/Chest wall: Effort normal. (-) Respiratory distress, (-) Wheezes, (-) Rales Abd: Soft, (-) Tenderness, (-) Distension, (-) Guarding, (-) Rebound Musculoskeletal: (-) Edema Lymph: (-) Cervical adenopathy Neuro: Alert, Oriented x3 Psych: Mood and affect Normal Triage Information Reviewed: Yes Vital Signs On Initial Exam: Initial Vitals Temp Pulse Resp BP Pulse Ox 98.1 F 80 18 112/71 91 07/17/17 11:20 07/17/17 11:20 07/17/17 11:20 07/17/17 11:20 07/17/17 11:20 Vital Signs Reviewed: Yes Diagnostics - Vital Signs Vital Signs Temp Pulse Resp BP Pulse Ox 07/17/17 11:20 98.1 F 80 18 112/71 91 - Laboratory Result Diagrams: 07/17/17 12:11 07/17/17 12:11 Lab Statement: Any lab studies that have been ordered have been reviewed, and results considered in the medical decision making process. - Radiology CXR Xray Interpretation: No Acute Changes Radiology Interpretation Completed By: Radiologist - NORMAL CHEST - EKG 11:59 Cardiac Rate: NL EKG Rhythm: Sinus Rhythm - 77 BPM EKG Interpretation: No STEMI Re-Evaluation - Re-Evaluation First Eval Re-Evaluation Time: 15:15 Change: Unchanged - O2 saturation low. Course/Dx Course Of Treatment: ED physician suspects syncope related to vagal simulation during irrigation of ear. MT is ruled out with 2 troponins. Pt is hemodynamically stable. Tamiflu prescribed. - Diagnoses Provider Diagnoses: Influenza, Vasovagal syncope Discharge - Discharge Plan Condition: Stable Disposition: HOME Prescriptions: Oseltamivir CAP* [Tamiflu CAP*] 75 mg PO BID #20 cap Patient Education Materials: Syncope (ED), Influenza (ED) Referrals: Bassam Zamora MD [Primary Care Provider] - 3 Days Additional Instructions: RETURN TO THE EMERGENCY DEPARTMENT FOR CHANGING OR WORSENING SYMPTOMS The documentation as recorded by the Pillo douglas Stephanie accurately reflects the service I personally performed and the decisions made by Jodi escobar Jerry, MD.
== END 2017-07-17 17:28 | disposition home or self-care (01) ==
LOC: ED 11:11
DX: R55 Syncope and collapse (principal); J11.1 Influenza due to unidentified influenza virus with other respiratory manifestations; Z88.3 Allergy status to other anti-infective agents; Z88.0 Allergy status to penicillin; Z88.7 Allergy status to serum and vaccine
CPT/HCPCS: 36415; 71045; 80053; 81003; 83605; 83735; 84443; 84484; 85025; 93005; 96360; 96361; 99283; A9270-GY